=== PATIENT | male | born 1985 | race Caucasian/White ===

== ENCOUNTER 2017-01-10 12:16 | Emergency (ER) | payer SELFPAY ==
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
[2017-01-10] MEDS ORDERED: cefTRIAXone 1,000 MG in Lidocaine 1% 4 ML IM ONE (13:38)
[2017-01-10 13:59] VITALS: BP 129/85
== END 2017-01-10 13:59 | disposition home or self-care (01) ==
LOC: MW.ED 12:16
DX: L03.115 Cellulitis of right lower limb (principal); F17.210 Nicotine dependence, cigarettes, uncomplicated; Z98.890 Other specified postprocedural states
CPT/HCPCS: 36415; 81001; 85025; 96372; 99283; G0478; J0696; 80305